=== PATIENT | female | born 1950 | race Caucasian/White ===

== ENCOUNTER 2018-01-24 13:15 | Observation (INO) ==
--- NOTE | 2018-01-24 14:24 | Emergency Department Note ---
Disposition Clinical Impression: Abdominal discomfort, Palpitations, Acute electrocardiogram changes Disposition: Admitted As Inpatient Condition: Good Time of Disposition: 16:48 General Adult HPI - General Chief complaint: ED Abdominal Pain Stated complaint: multiple complaints Time Seen by Provider: 01/24/18 13:53 Source: patient Mode of arrival: ambulatory Limitations: no limitations Nursing Notes Reviewed: Yes Vital Signs Reviewed: Yes - History of Present Illness HPI Narrative: Patient is a 67-year-old female that presents the emergency department with multiple complaints. She states that she has been having abdominal pain and burning in her urination. She also reports that when she has the burning with urination at times she will develop chest pain and feeling like her heart is racing. Patient also reports that the pain will be in her right flank area as well. Patient states that when she has the burning with urination she becomes flushed and feels very warm. Patient denies having anything like this before. She does state that she has a history of diverticulitis in the past. Pain Scale: 8 - Related Data Home Medications Medication Instructions Recorded Confirmed Gabapentin [Neurontin] 300 mg PO TID 01/24/18 01/24/18 Losartan Potassium [Cozaar] 100 mg PO DAILY 01/24/18 01/24/18 Omeprazole [PriLOSEC] 40 mg PO DAILY 01/24/18 01/24/18 Allergies Allergy/AdvReac Type Severity Reaction Status Date / Time No Known Allergies Allergy Verified 01/24/18 14:37 All systems ED: reviewed and negative except as stated. Constitutional: Reports: other (flushed) Cardiovascular: Reports: chest pain, palpitations Respiratory: Denies: dyspnea Gastrointestinal: Reports: abdominal pain. Denies: nausea, vomiting Genitourinary: Reports: urgency, dysuria, frequency. Denies: hematuria Musculoskeletal: Reports: back pain Past Medical History - Past Medical History Medical history: Reports: hypertension Psychiatric history: Reports: no psych history - Social History Smoking Status: Never smoker Smokeless Tobacco Status: No Alcohol use: Reports: none Drug use: Reports: none Physical Exam - General Limitations: no limitations General appearance: alert, in no apparent distress - Head Head exam: atraumatic, normocephalic - Eye Eye exam: Present: normal appearance, EOMI - Neck Neck exam: Present: normal inspection, full ROM, trachea midline - Respiratory Respiratory exam: Present: normal lung sounds bilaterally. Absent: respiratory distress, wheezes - Cardiovascular Cardiovascular exam: Present: regular rate, normal rhythm, normal heart sounds, +S1, +S2 - Abdominal Exam Abdominal exam: Present: soft, tenderness, normal bowel sounds Abdominal tenderness: Present: suprapubic - Back Exam Back exam: Present: normal inspection, full ROM, CVA tenderness (R) - Neurological Exam Neurological exam: Present: alert, oriented X3 - Psychiatric Psychiatric exam: Present: normal affect, normal mood - Skin Skin exam: Present: warm, dry, intact Course Vital Signs Temperature 97.3 F L 01/24/18 13:16 Pulse Rate 100 01/24/18 13:16 Respiratory Rate 18 01/24/18 13:16 Blood Pressure 161/89 01/24/18 13:16 O2 Sat by Pulse Oximetry 97 01/24/18 13:16 Temperature 97.3 F L 01/24/18 13:54 Pulse Rate 87 01/24/18 16:30 Respiratory Rate 16 01/24/18 17:03 Blood Pressure 156/84 01/24/18 17:03 O2 Sat by Pulse Oximetry 94 01/24/18 16:30 Oxygen Delivery Oxygen Delivery Room Air Medical Decision Making - MDM Narrative Medical decision making narrative: Due to the patient presented to the emergency department with abdominal pain with multiple other concerns including palpitations, flushing and what sounds like potential hot flashes we will obtain basic laboratory tests including a CBC , BMP, troponin chest x-ray and EKG as well as a urinalysis and a CT scan of the abdomen and pelvis. Patient EKG did show some T-wave inversions in the leads of V3, V4 and V5. This appears to be new from previous EKG. Patient's troponin was negative. Chest x-ray did not show any acute cardiopulmonary process. The remainder the patient's laboratory testing is unremarkable. However due to these new EKG changes that feel that is important that the patient be admitted to the hospital for further evaluation and management. The hospitalist Dr. Wooten has accepted the patient to their service. Patient will be admitted to the hospital this time for further evaluation and management. - Medical Records Medical records reviewed: Yes I reviewed the patient's medical records. - Lab Data Lab results reviewed: Yes I reviewed the patient's lab results. Result diagrams: 01/24/18 14:20 01/24/18 14:20 Lab Results 01/24/18 01/24/18 01/24/18 Range/Units 14:15 14:20 14:20 WBC 7.8 (4.3-11.1) K/mcL RBC 4.67 (3.82-4.97) M/mcL Hgb 14.1 (11.5-15.4) g/dL Hct 40.7 (35.3-44.9) % MCV 87.2 (83.0-100.0) fL MCH 30.2 (28.0-33.3) pg MCHC 34.6 (31.6-35.5) g/dL RDW 13.2 (11.5-14.5) % Plt Count 262 (140-400) K/mcL MPV 10.6 (9.4-12.4) fL Immature Gran % 0.4 (0-4) % Seg Neutrophils % 79.5 % Lymphocytes % 16.2 % Monocytes % 3.4 % Eosinophils % 0.0 % Basophils % 0.5 % Neutrophils # 6.2 (1.6-8.9) K/mcL Lymphocytes # 1.3 (0.6-4.6) K/mcL Monocytes # 0.3 (0.0-1.3) K/mcL Eosinophils # 0.0 (0.0-0.6) K/mcL Basophils # 0.0 (0.0-0.2) K/mcL Sodium 138 (136-145) mEq/L Potassium 3.7 (3.5-5.1) mEq/L Chloride 103 (98-107) mEq/L Carbon Dioxide 27 (23-29) mEq/L BUN 5 L (8-23) mg/dL Creatinine 0.80 (0.60-1.20) mg/dL Est GFR ( Amer) > 60 (> 60) Est GFR (Non-Af Amer) > 60 (> 60) BUN/Creatinine Ratio 6 (6-26) Glucose 120 H (70-105) mg/dL Calculated Osmolality 284 (280-300) Calcium 9.5 (8.6-10.3) mg/dL Total Bilirubin 0.5 (0.3-1.0) mg/dL Direct Bilirubin 0.1 (0.0-0.2) mg/dL Indirect Bilirubin 0.4 (0.0-1.2) mg/dL AST 20 (13-39) Units/L ALT 21 (7-52) Units/L Alkaline Phosphatase 77 (34-104) Units/L Troponin I < 0.03 (< 0.04) ng/mL Serum Total Protein 6.9 (6.4-8.9) g/dL Albumin 4.1 (3.5-5.7) g/dL Globulin 2.8 (2.4-3.5) g/dL Albumin/Globulin Ratio 1.5 (1.1-2.2) Amylase 24 L (29-103) Units/L Lipase 22 (11-82) Units/L Urine Color Yellow (Yellow) Urine Clarity Clear (Clear) Urine pH 7.0 (5.0-8.0) pH Units Ur Specific [place] 1.010 (1.010-1.025) Urine Protein Negative (Neg-Trace) mg/dL Urine Glucose (UA) Normal (Normal) mg/dL Urine Ketones Trace H (Negative) mg/dL Urine Blood Negative (Negative) Urine Nitrite Negative (Negative) Urine Bilirubin Negative (Negative) Urine Urobilinogen Normal (Normal) mg/dL Ur Leukocyte Esterase Negative (Negative) Ur Culture Indicated? NO (NO) - Radiology Data Radiology results reviewed: Yes I reviewed the patient's radiology results. Abdomen/Pelvis CT 01/24/18 14:05 IMPRESSION: No CT evidence of an acute intra-abdominal or intrapelvic process. Nonspecific hyperdense nodule inferior right kidney probably reflects a hemorrhagic cyst, requiring follow-up CT imaging in 6 months to ensure stability. D/ / Colton Rosas / Colton Rosas Interpreting Provider: Colton Rosas Chest X-Ray 01/24/18 15:18 IMPRESSION: No acute process. D/ / Artur Saucedo MD / Artur Saucedo MD Interpreting Provider: Artur Saucedo MD - EKG Data EKG #1 EKG attestation: Yes I reviewed and interpreted this EKG. EKG results narrative: EKG showed a sinus rhythm at a rate of 80 bpm, MO interval of 145, Q orthodox of 87, QTc of 423 with a normal axis. There are some T-wave inversions in leads V3, V4 and V5. This is compared to previous EKG on . These inversions were not present at that time. There is no STEMI noted on EKG. Attestation Statement - Attestation Attestation: I examined this patient and my medical decision-making was reviewed with the Resident Physician, Dr. Ge. I agree with the documented findings, disposition and treatment plan as described except to the extent set forth below. Patient is a 67-year-old white female with no prior cardiac history or evaluation who presents to the emergency department today with complaints of gradually worsening symptoms that she describes as a intra-abdominal burning sensation that spread up into her chest and is associated with the onset of "heart racing" symptoms and she becomes diaphoretic and warm. Patient states these episodes have been happening more frequently and with more intensity. Patient denies any chest pain or pressure sensation but does feel short of breath with these symptoms. She also has some complaints of pain with urination a similar burning sensation that she feels that radiates throughout her body. Patient denies any lightheadedness or syncope with these symptoms. I agree with patient's physical exam findings as documented. I personally evaluated the patient at bedside and agree with history and physical findings. Vital signs are stable and she is in no acute distress. Patient's EKG showed new T-wave inversion in the anterolateral leads compared to prior EKG. Patient was not having any chest pain pressure or heaviness in no burning abdominal or chest symptoms while in the ED. She was administered aspirin. Patient underwent lab evaluation urinalysis and CT abdomen and pelvis. Also chest x-ray was obtained. Patient with no abnormalities of her lab testing chest x-ray were CT. Concerned that patient may be having atypical angina symptoms and would benefit from admission and further cardiac evaluation. Patient agrees with plan and case was discussed with hospitalist who accepted patient for admission.
[2018-01-24 14:29] LABS: Bilirubin,Urine Negative (Negative); Blood,Urine Negative (Negative); Clarity,Urine Clear (Clear); Color,Urine Yellow (Yellow); Glucose,Urine (UA) Normal (Normal); Ketones,Urine Trace mg/dL (Negative); Leukocyte Esterase,Urine Negative (Negative); Nitrite,Urine Negative (Negative); Protein,Urine Negative (Neg-Trace); Urobilinogen,Urine Normal (Normal)
[2018-01-24] MEDS ORDERED: Aspirin 81 MG TAB.CHEW PO STA (14:29)
[2018-01-24 14:42] LABS: Basophils % 0.5 %; Hematocrit 40.7 % (35.3-44.9); Hemoglobin 14.1 g/dL (11.5-15.4); Immature Granulocytes % 0.4 % (0-4); Lymphocytes # 1.3 K/mcL (0.6-4.6); Lymphocytes % 16.2 %; Mean Corpuscular HGB Conc 34.6 g/dL (31.6-35.5); Mean Corpuscular Hemoglobin 30.2 pg (28.0-33.3); Mean Corpuscular Volume 87.2 fL (83.0-100.0); Mean Platelet Volume 10.6 fL (9.4-12.4); Monocytes # 0.3 K/mcL (0.0-1.3); Monocytes % 3.4 %; Neutrophils # 6.2 K/mcL (1.6-8.9); Platelet Count 262 K/mcL (140-400); Red Blood Count 4.67 M/mcL (3.82-4.97); Red Cell Distribution Width 13.2 % (11.5-14.5); Segmented Neutrophils % 79.5 %
[2018-01-24 15:04] LABS: Troponin I < 0.03 ng/mL (< 0.04)
[2018-01-24 15:07] LABS: Alanine Aminotransferase 21 Units/L (7-52); Albumin 4.1 g/dL (3.5-5.7); Albumin/Globulin Ratio 1.5 (1.1-2.2); Alkaline Phosphatase 77 Units/L (34-104); Amylase 24 Units/L (29-103); Aspartate Amino Transferase 20 Units/L (13-39); BUN/Creatinine Ratio 6 (6-26); Bilirubin,Direct 0.1 mg/dL (0.0-0.2); Bilirubin,Indirect 0.4 mg/dL (0.0-1.2); Bilirubin,Total 0.5 mg/dL (0.3-1.0); Blood Urea Nitrogen 5 mg/dL (8-23); Calcium 9.5 mg/dL (8.6-10.3); Carbon Dioxide 27 mEq/L (23-29); Chloride 103 mEq/L (98-107); Globulin 2.8 g/dL (2.4-3.5); Glucose 120 mg/dL (70-105); Lipase 22 Units/L (11-82); Osmolality,Calculated 284 (280-300); Potassium 3.7 mEq/L (3.5-5.1); Sodium 138 mEq/L (136-145); Total Protein 6.9 g/dL (6.4-8.9); eGFR For African Americans > 60 (> 60); eGFR For Non-African Americans > 60 (> 60)
[2018-01-24] MEDS ORDERED: Naloxone 0.4 MG/ML INJ IVP PRN (18:14)
--- NOTE | 2018-01-24 18:38 | Internal Med History&Physical ---
<VivianDayna Brandee - Last Filed: 01/24/18 19:49> Date of Encounter: 01/24/18 Time of Encounter: 18:28 Internal Medicine - H&P: HPI Chief complaint: Chest Pain Admitted From: Home Plans for Post Hospital Care: Home History of present illness: Ms. Ge is a 67 year old female that reported a burning sensation in her chest and epigastric region that radiated into her back. She also had some nausea, light headedness, and heart palpitations. She indicated that she noticed the burning symptoms 2-3 weeks ago and has been taking omeprazole that was provided by her pcp, however it has been ineffective. The CP is new in the past 3 days. Amylase is 24 and lipase is 22. She also indicated that she had a CT scan done last week, where she was told she had constipation through another provider. She indicated this was resolved. The patient stated she also has history of ulcers and diverticulitis and has had EGD and colonoscopy 7 years ago. She was dx with esophagitis and was treated medically. CXR was neg for acute dx. Ct of abd/pelvis today showed a hyper dense hemorrhagic cyst requiring follow up in the next 6 months. The patient indicated the pain was in the epigastric and mid-sternal region. She rated the pain 8/10. Trop was negative. EKG showed SR with T-wave inversion in leads, v3, v4,v5. This was apparently a change from her previous ekg. Cardiac risk factors include age, and hx of htn, she was never a smoker. Reports her pain is greatly improved at this time. She reports her last echo and stress test were 2-3 years ago. She thought they were normal. Past Med Surg Social Fam HX - Past Medical History Medical history: hypertension Psychiatric history: no psych history - Social History Smoking Status: Never smoker Smokeless Tobacco Status: No Alcohol use: none Drug use: none Internal Medicine - H&P: Meds Gabapentin [Neurontin] 300 mg PO TID 01/24/18 [History] Losartan Potassium [Cozaar] 100 mg PO DAILY 01/24/18 [History] Omeprazole [PriLOSEC] 40 mg PO DAILY 01/24/18 [History] 3 Allergy/AdvReac Type Severity Reaction Status Date / Time No Known Allergies Allergy Verified 01/24/18 14:37 All Systems PM: A 10-system review of systems was performed and is negative for pertinent findings except as documented above in the HPI. - Constitutional Constitutional: weakness, no chills, no fever(s), no night sweats - EENT Eyes: no change in vision, no discharge, no pain, no photophobia Ears: no ear discharge, no ear pain, no tinnitus Nose, mouth and throat: no dysphagia, no nasal discharge, no neck pain, no sore throat - Cardiovascular Cardiovascular ROS IM: chest pain, lightheadedness, palpitations, no diaphoresis , no dyspnea, no syncope - Respiratory Respiratory: no cough, no dyspnea, no wheezing, no excessive phlegm production - Gastrointestinal Gastrointestinal: abdominal pain (Abdominal and chest burning), nausea, no diarrhea, no hematemesis, no hematochezia, no melena, no vomiting - Genitourinary Genitourinary: no change in urinary stream, no dysuria, no flank pain, no hematuria - Musculoskeletal Musculoskeletal ROS IM: no numbness, no tingling - Integumentary Integumentary IM: no rash, no unusual bruising - Neurological Neurological ROS: no confusion, no convulsions, no focal weakness, no numbness, no tingling, no tremor(s) - Hematologic/Lymphatic Hematologic/Lymphatic: no easy bruising - Constitutional Vitals: Temp Pulse Resp BP Pulse Ox 97.3 F L 87 16 156/84 94 01/24/18 13:54 01/24/18 16:30 01/24/18 17:03 01/24/18 17:03 01/24/18 16:30 General appearance: Present: A&O X 3, no acute distress - Head Head exam: Present: atraumatic, normocephalic - Eye Eye exam: Present: PERRL, conjuntiva pink, sclera anicteric Pupils: Present: PERRL - Neck Neck exam general surgery: Present: supple, trachea midline. Absent: lymphadenopathy - Respiratory Respiratory exam: Present: CTAB. Absent: accessory muscle use, rales, rhonchi, wheezes - Cardiovascular Cardiovascular exam: Present: RRR, +S1, +S2. Absent: diastolic murmur, gallop, rubs, systolic murmur - GI/Abdominal GI/Abdominal exam: Present: hyperactive bowel sounds, soft, no peritoneal signs. Absent: distended - Extremities Exam Extremities exam: Present: warm, radial pulses palpable and symmetrical. Absent : calf tenderness, cyanotic, pedal edema - Neurological Exam Neurological exam: Present: alert, CN II-XII intact, oriented X3, no focal deficits. Absent: pronater drift, facial droop, speech deficit - Skin Skin exam: Present: dry, intact Internal Med - H&P Results - Labs CBC & Chem 7: 01/24/18 14:20 01/24/18 14:20 - Assessment and plan (1) Atypical chest pain Current Visit: Yes Status: Acute Assessment and plan: Serial cardiac troponins, cardiac monitoring, morphine iv prn, echo and stress test scheduled for the am. Started on atorvastatin. (2) Abdominal discomfort Current Visit: Yes Status: Acute Assessment and plan: Abdominal ct showed a hemorrhagic cysts that needs follow up in 6 months. Patient states she has had gastric ulcers and diverticulitis in the past. Currently on omeprazole at home. Protonix iv started daily. Will add a GI consult for am. - Time Spent With Patient Total time spent is greater than 50% in coordination of care (as documented) at patient's floor/unit and/or counseling patient: <Tima Moy P - Last Filed: 01/25/18 04:38> Date of Encounter: 01/24/18 Internal Medicine - H&P: HPI History of present illness: Ms. Ge is a 67 year old female All Systems PM: A 10-system review of systems was performed and is negative for pertinent findings except as documented above in the HPI. - Constitutional Vitals: Temp Pulse Resp BP Pulse Ox 98.0 F 72 15 134/72 98 01/25/18 01:03 01/25/18 01:03 01/25/18 01:03 01/25/18 01:03 01/25/18 01:03 Internal Med - H&P Results - Labs CBC & Chem 7: 01/24/18 14:20 01/24/18 14:20 Labs: Cardiac Enzymes 01/24/18 Range/Units 22:00 Troponin I < 0.03 (< 0.04) ng/mL - Attending Attestation I saw and evaluated the patient, and performed my own physical examination on . I discussed the case with the BOILER HOUSE SUPERVISOR, and reviewed the BOILER HOUSE SUPERVISOR's note. I agree with findings and plan as documented in the BOILER HOUSE SUPERVISOR's note except noted here. Briefly, patient admitted for chest/abdominal pain. She states the pain is a "burning" and points to her epigastrium. She has had GI issues multiple times in past, including multiple scopes with only significant finding to be mild esophagitis. She states that she feels constipated. We will do full ACS ruleout. We will start PPI and get GI consult in AM. Patient having mild burning sensation at this time, but in no distress. Abdominal exam significant for mild TTP in LLQ and RLQ. - Time Spent With Patient Total time spent is greater than 50% in coordination of care (as documented) at patient's floor/unit and/or counseling patient:
[2018-01-24] MEDS ORDERED: GI Cocktail 40 ML EACH PO ONE (20:07)
[2018-01-24] MEDS ORDERED: Pantoprazole 40 MG VIAL IVP ONE (20:39)
[2018-01-24] MEDS ORDERED: Bisacodyl 10 MG RECTAL SUPPOSITORY RC STA (20:48)
[2018-01-24] MEDS ORDERED: Acetaminophen 325 MG TABLET PO PRN (20:51)
[2018-01-24] MEDS: Pantoprazole 40 MG VIAL IVP SCH (21:23)
[2018-01-24] MEDS: Gabapentin 300 MG CAPSULE PO SCH (21:36)
[2018-01-25] MEDS ORDERED: Famotidine 20 MG TABLET PO STA (01:00)
[2018-01-25] MEDS: Sucralfate 1 GM TABLET PO SCH ×5 (01:08→20:49)
[2018-01-25 05:12] LABS: Basophils % 0.5 %; Eosinophils % 0.5 %; Hematocrit 38.2 % (35.3-44.9); Hemoglobin 13.4 g/dL (11.5-15.4); Immature Granulocytes % 0.4 % (0-4); Lymphocytes # 1.4 K/mcL (0.6-4.6); Lymphocytes % 17.8 %; Mean Corpuscular HGB Conc 35.1 g/dL (31.6-35.5); Mean Corpuscular Hemoglobin 30.2 pg (28.0-33.3); Mean Corpuscular Volume 86.2 fL (83.0-100.0); Mean Platelet Volume 10.6 fL (9.4-12.4); Monocytes # 0.6 K/mcL (0.0-1.3); Monocytes % 7.5 %; Neutrophils # 5.9 K/mcL (1.6-8.9); Platelet Count 243 K/mcL (140-400); Red Blood Count 4.43 M/mcL (3.82-4.97); Red Cell Distribution Width 13.1 % (11.5-14.5); Segmented Neutrophils % 73.3 %
[2018-01-25 05:22] LABS: Troponin I < 0.03 ng/mL (< 0.04)
[2018-01-25 05:26] LABS: BUN/Creatinine Ratio 7 (6-26); Blood Urea Nitrogen 6 mg/dL (8-23); Carbon Dioxide 27 mEq/L (23-29); Chloride 102 mEq/L (98-107); Chol/HDL Ratio 3.1 (0-4.9); Cholesterol 129 mg/dL (< 200); Glucose 116 mg/dL (70-105); HDL Cholesterol 42 mg/dL (40-59); LDL Cholesterol,Calculated 64 mg/dL (0-99); Osmolality,Calculated 285 (280-300); Potassium 3.9 mEq/L (3.5-5.1); Sodium 138 mEq/L (136-145); Triglycerides 113 mg/dL (< 150); eGFR For African Americans > 60 (> 60); eGFR For Non-African Americans > 60 (> 60)
[2018-01-25] MEDS ORDERED: Regadenoson 0.4 MG/5 ML SYRINGE IVP ONE (05:38)
[2018-01-25] MEDS: Gabapentin 300 MG CAPSULE PO SCH ×3 (11:26→20:49)
[2018-01-25] MEDS: Pantoprazole 40 MG VIAL IVP SCH ×2 (11:26→16:20)
[2018-01-25] MEDS: Aspirin 81 MG TAB.CHEW PO SCH (11:56)
--- NOTE | 2018-01-25 12:40 | Gastroenterology Consult Note ---
<Marissa Stuatr - Last Filed: 01/25/18 12:34> Date of Encounter: 01/25/18 Time of Encounter: 12:20 - Assessment and plan (1) Atypical chest pain Current Visit: Yes Status: Acute Assessment and plan: Pt has epigastric and chest pain. She has Gerd. recently started on omeprazole with no relief. plan for EGD today to r/o esophagitis, gastritis, duodenitis, PUD, MW tear, or AVM. Keep patient NPO for now. Patient educated regarding lifestyle modifications including: (1) avoidance of foods that may precipitate reflux (eg, coffee, alcohol, chocolate, fatty foods) . (2) avoidance of acidic foods that may precipitate heartburn (eg, citrus, carbonated drinks, spicy foods). (3) adoption of behaviors that may reduce esophageal acid exposure (see weight loss, smoking cessation, raising the head of the bed, and avoiding recumbency for 2-3 hours after meals). - Time Spent With Patient Total time spent is greater than 50% in coordination of care (as documented) at patient's floor/unit and/or counseling patient: GI History of Present Illness - Data of Consult Patient: new to practice Consult date: 01/25/18 Requesting Physician: Krysten Wooten - Consult Narrative Reason for consult: epigastric/chest pain History of present illness: Ms. Ge is a 67 year old female with a history of HTN. She presents with a burning sensation in her chest and epigastric region that radiated into her back and around her right shoulder. She also had some nausea, light headedness, and heart palpitations. She indicated that she noticed the burning symptoms 2-3 weeks ago and has been taking omeprazole that was provided by her pcp, with minimal relief. She had a cT scan done last week, and reports it showed constipation, but states is now resolved. The patient stated she also has history of ulcers and diverticulitis and has had EGD and colonoscopy 7 years ago. She was dx with esophagitis and was treated medically. CXR was neg for acute dx. Ct of abd/pelvis today showed a hyper dense hemorrhagic cyst requiring follow up in the next 6 month, no acute process. Trop was negative. EKG showed SR with T-wave inversion in leads, v3, v4,v5. This was apparently a change from her previous ekg. Cardiac risk factors include age, and hx of htn, she was never a smoker. Labs were basically normal. NSAIDS: asa 81mg , ibuprofen only on occasion Procedures: 2011 [facility] EGD/colonoscopy gastritis, diverticulitis ]bloodthinners: denies Past Med Surg Social Fam HX - Past Medical History Medical history: hypertension Psychiatric history: no psych history - Social History Smoking Status: Never smoker Smokeless Tobacco Status: No Alcohol use: none Drug use: none Review of Systems: GI: as per [place] GENERAL: denies fever or chills EYES: denies yellow discoloration ENT: denies pain with swallowing or difficulty swallowing CARDIO: dsee HPI RESP: No Shortness of breath with exertion : denies change in color of urine NEURO: admits to weakness HEME: Denies any bruising MS: right shoulder pain and tenderness DERM: denies rash or itching PSYCH: Denies history of anxiety or depression - Constitutional Vitals: Temp Pulse Resp BP Pulse Ox 98.4 F 71 18 149/86 95 01/25/18 11:33 01/25/18 11:33 01/25/18 11:33 01/25/18 11:33 01/25/18 11:32 Exam: CONSTITUTIONAL:~alert, no acute distress.~HEAD:~normocephalic.~EYES:~no jaundice.~NECK:~no obvious swelling.~HEART:~regular rate and rhythm, no murmurs. ~LUNGS:~bilateral good air entry.~ABDOMEN:~non distended, soft, tender epigastric area, no masses palpable, no organomegaly.~RECTAL EXAM:~Deferred.~ EXTREMITIES:~no clubbing, cyanosis or edema.~SKIN:~no stigmata of chronic liver disease.~NEUROLOGIC:~no obvious focal defect.~~~~ Results - Labs CBC & Chem 7: 01/25/18 04:36 01/25/18 04:36 Labs: Last Result Calcium 9.0 mg/dL (8.6-10.3) 01/25/18 04:36 Troponin I < 0.03 ng/mL (< 0.04) 01/25/18 11:37 Triglycerides 113 mg/dL (< 150) 01/25/18 04:36 Entire Visit Hgb 13.4 g/dL (11.5-15.4) 01/25/18 04:36 Hct 38.2 % (35.3-44.9) 01/25/18 04:36 Total Bilirubin 0.5 mg/dL (0.3-1.0) 01/24/18 14:20 AST 20 Units/L (13-39) 01/24/18 14:20 ALT 21 Units/L (7-52) 01/24/18 14:20 Amylase 24 Units/L (29-103) L 01/24/18 14:20 Lipase 22 Units/L (11-82) 01/24/18 14:20 Consult Discharge Plan - Plan Additional Instructions: Follow-up with Dr. Davis in clinic Referrals: Lindsey Cordero CNP [Primary Care Provider] - (Please follow up with PCP, Clinic currently closed, call to set up appointment. ) Eryn Davis MD [Partnered Physician] - (Web request sent, if not contacted Please make appointment sunday, clinic currently closed for weekend. ) Prescriptions: Polyethylene Glycol 3350 [MiraLAX] 17 gm PO DAILY PRN #[id number] [email or web address] PRN Reason: Constipation <Eryn Davis - Last Filed: 01/26/18 12:30> Date of Encounter: 01/25/18 Time of Encounter: 12:00 - Time Spent With Patient Total time spent is greater than 50% in coordination of care (as documented) at patient's floor/unit and/or counseling patient: GI History of Present Illness - Data of Consult Requesting Physician: Krysten Wooten - Consult Narrative History of present illness: Ms. Ge is a 67 year old female - Constitutional Vitals: Temp Pulse Resp BP Pulse Ox 98.4 F 72 16 131/84 98 01/26/18 11:13 01/26/18 11:13 01/26/18 11:13 01/26/18 11:13 01/26/18 11:13 Results - Labs CBC & Chem 7: 01/26/18 05:39 01/26/18 05:39 Labs: Last Result Calcium 9.1 mg/dL (8.6-10.3) 01/26/18 05:39 Troponin I < 0.03 ng/mL (< 0.04) 01/25/18 11:37 Triglycerides 113 mg/dL (< 150) 01/25/18 04:36 Entire Visit Hgb 13.2 g/dL (11.5-15.4) 01/26/18 05:39 Hct 38.7 % (35.3-44.9) 01/26/18 05:39 Total Bilirubin 0.5 mg/dL (0.3-1.0) 01/24/18 14:20 AST 20 Units/L (13-39) 01/24/18 14:20 ALT 21 Units/L (7-52) 01/24/18 14:20 Amylase 24 Units/L (29-103) L 01/24/18 14:20 Lipase 22 Units/L (11-82) 01/24/18 14:20 - Impressions Impressions Echocardiogram 01/25/18 18:20 Impressions: LVEF 60-65%. Normal LV chamber size and function. Mild concentric left ventricular hypertrophy. Mild left ventricular diastolic dysfunction. Normal right ventricular structure and function. No evidence of pulmonary hypertension. No significant valvular dysfunction. Left Ventricular Wall Motion: Rest Echo Findings All wall segments showed normal motion. Findings: Study Quality * Technically adequate exam. ECG Findings * Normal sinus rhythm. Left Ventricle * LVEF 60-65%. * Normal LV chamber size and function. * Mild concentric left ventricular hypertrophy. * Mild left ventricular diastolic dysfunction. Right Ventricle * Normal right ventricular structure and function. Left Atrium * Mildly dilated left atrium. Right Atrium * Normal right atrial size. Aortic Valve * Trileaflet aortic valve with normal function. * No aortic regurgitation. * No aortic stenosis. Mitral Valve * Normal mitral valve structure and function. * No mitral stenosis. * Trace mitral regurgitation. Tricuspid Valve * Normal tricuspid valve structure and function. * Trace tricuspid regurgitation. * No evidence of pulmonary hypertension. Pulmonic Valve * Normal pulmonic valve structure and function. * Trace pulmonic regurgitation. Aorta * Normally sized aortic root. Pericardium * The pericardium appears normal. IVC * Normal IVC dimensions and inspiratory collapse. Pulmonary Artery * Normal visualized portions of the main pulmonary artery. - Attending Attestation I have personally performed a face to face evaluation on this patient. I have reviewed and agree with the care plan. History and Exam by me shows: Pt seen , complaining of abd pain. CT negative. Rec:EGD to r/o PUD
[2018-01-25] MEDS ORDERED: *HR* Midazolam HCl 5 MG/5 ML VIAL IVP ONE (12:55)
[2018-01-25] MEDS ORDERED: *HR* FentaNYL (PF) 100 MCG/2 ML VIAL ONE (12:55)
[2018-01-25] MEDS ORDERED: *HR* Midazolam HCl 2 MG/2 ML VIAL IVP ONE (12:58)
[2018-01-25] MEDS ORDERED: *HR* FentaNYL (PF) 100 MCG/2 ML VIAL IVP ONE (12:58)
[2018-01-25] MEDS ORDERED: Tetracaine/Benzocaine/Butamben 200MG/SPRAY (100SPY/BOT) MM ONE (12:58)
[2018-01-25] MEDS ORDERED: Simethicone 40 MG/0.6 ML MLS IR ONE (12:58)
--- NOTE | 2018-01-25 12:59 | Pre-Sedation Evaluation ---
Pre-sedation evaluation - Pre-sedation checklist Date of procedure: 01/25/18 Recent Vitals: Last Vital Signs Temp 98.4 F 01/25/18 12:52 Pulse 71 01/25/18 12:52 Resp 18 01/25/18 12:52 BP 149/86 01/25/18 12:52 Pulse Ox 99 01/25/18 12:52 ASA Classification *see protocol: CLASS III-Severe systemic disease Plan of Care: Pt appropriate candidate for procedure/moderate/conscious sedation , Risks/benefits of procedure/sedation discussed w/ patient/family
--- NOTE | 2018-01-25 15:51 | Internal Med Progress Note ---
Date of Encounter: 01/25/18 Time of Encounter: 15:47 - Assessment and plan (1) Chest pain Current Visit: Yes Status: Acute Assessment and plan: 67-year-old female presented with acute onset of burning chest pain. She underwent stress nuclear test and echocardiogram today which are normal per report. She then underwent a EGD study by GI. The report currently still pending. - Continue PPI, considering discharge patient tomorrow if no further workup is needed. Qualifiers: Ischemic chest pain type: unspecified angina pectoris type Qualified Code(s ): I25.9 - Chronic ischemic heart disease, unspecified (2) Abdominal discomfort Current Visit: Yes Status: Acute Assessment and plan: CT abdomen and pelvis no acute abnormalities, continue monitoring. - Time Spent With Patient Total time spent is greater than 50% in coordination of care (as documented) at patient's floor/unit and/or counseling patient: Greater than 35 minutes - Subjective Interval history: Patient seen and examined in room, she is still having a burning sensation in chest that has improved after received IV PPI. - Constitutional Vitals: Temp Pulse Resp BP Pulse Ox 98.1 F 76 16 148/80 97 01/25/18 15:22 01/25/18 15:22 01/25/18 15:22 01/25/18 15:22 01/25/18 15:22 General appearance: Present: A&O X 3, no acute distress Exam: PHYSICAL EXAMINATION: GENERAL APPEARANCE: The patient is alert, oriented and in no acute distress. HEENT: Head is normocephalic. The sinuses are nontender. Pupils are equal and reactive. The nares are patent. Oropharynx clear without lesions. NECK: Supple without lymphadenopathy. HEART: Regular rate and rhythm. LUNGS: No crackles or wheezes are heard. ABDOMEN: Soft, nontender, nondistended with good bowel sounds heard. Inguinal area is normal. EXTREMITIES: Without cyanosis, clubbing or edema. NEUROLOGICAL: Gross nonfocal. SKIN: Warm and dry without any rash. Internal Medicine: Result - Labs CBC & Chem 7: 01/25/18 04:36 01/25/18 04:36 Labs: Short CBC 01/25/18 Range/Units 04:36 WBC 8.0 (4.3-11.1) K/mcL Hgb 13.4 (11.5-15.4) g/dL Hct 38.2 (35.3-44.9) % Plt Count 243 (140-400) K/mcL Neutrophils # 5.9 (1.6-8.9) K/mcL BMP 01/25/18 04:36 Sodium 138 Potassium 3.9 Chloride 102 Carbon Dioxide 27 BUN 6 L Creatinine 0.81 Glucose 116 H Calcium 9.0 Cardiac Enzymes 01/24/18 01/25/18 01/25/18 Range/Units 22:00 04:36 11:37 Troponin I < 0.03 < 0.03 < 0.03 (< 0.04) ng/mL Consult Discharge Plan - Plan Referrals: Lindsey Cordero, [facility] [Primary Care Provider] -
[2018-01-25] MEDS ORDERED: Pantoprazole 40 MG VIAL IVP SCH (18:45)
[2018-01-25] MEDS ORDERED: Mag Hydrox/Al Hydrox/Simeth 30 ML UDC PO PRN (22:02)
--- NOTE | 2018-01-25 23:22 | Electrocardiograph Report ---
[place] [id number] Test Date: 2018-01-24 Pat Name: Carmen Ge Department: 103 Room: 3A Gender: F Database Programmer: TMR : 1950 Requested By: Tomer Ge Order Number: [id number] Reading MD: Misty Chaudhary Measurements Intervals [place] Rate: 80 P: 42 ND: 145 QRS: 17 QRSD: 87 T: 65 QT: 387 QTc: 423 Interpretive Statements SINUS RHYTHM ST DEVIATION AND MODERATE T-WAVE ABNORMALITY, CONSIDER ANTERIOR ISCHEMIA [-0.1+ mV T WAVE IN V3/V4] Electronically Signed On 01-25-2018 23:21:13 EDT by Misty Chaudhary
--- NOTE | 2018-01-25 23:24 | Electrocardiograph Report ---
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
[2018-01-26 06:02] LABS: Basophils # 0.1 K/mcL (0.0-0.2); Basophils % 0.8 %; Eosinophils # 0.1 K/mcL (0.0-0.6); Eosinophils % 1.2 %; Hematocrit 38.7 % (35.3-44.9); Hemoglobin 13.2 g/dL (11.5-15.4); Immature Granulocytes % 0.3 % (0-4); Lymphocytes # 1.7 K/mcL (0.6-4.6); Lymphocytes % 25.5 %; Mean Corpuscular HGB Conc 34.1 g/dL (31.6-35.5); Mean Corpuscular Hemoglobin 29.5 pg (28.0-33.3); Mean Corpuscular Volume 86.6 fL (83.0-100.0); Mean Platelet Volume 10.4 fL (9.4-12.4); Monocytes # 0.6 K/mcL (0.0-1.3); Monocytes % 8.4 %; Neutrophils # 4.2 K/mcL (1.6-8.9); Platelet Count 230 K/mcL (140-400); Red Blood Count 4.47 M/mcL (3.82-4.97); Red Cell Distribution Width 13.3 % (11.5-14.5); Segmented Neutrophils % 63.8 %
[2018-01-26 06:21] LABS: BUN/Creatinine Ratio 12 (6-26); Blood Urea Nitrogen 9 mg/dL (8-23); Calcium 9.1 mg/dL (8.6-10.3); Carbon Dioxide 27 mEq/L (23-29); Chloride 105 mEq/L (98-107); Glucose 102 mg/dL (70-105); Osmolality,Calculated 283 (280-300); Potassium 3.7 mEq/L (3.5-5.1); Sodium 137 mEq/L (136-145); eGFR For African Americans > 60 (> 60); eGFR For Non-African Americans > 60 (> 60)
[2018-01-26] MEDS: Pantoprazole 40 MG VIAL IVP SCH (08:10)
[2018-01-26] MEDS: Aspirin 81 MG TAB.CHEW PO SCH (08:10)
[2018-01-26] MEDS: Sucralfate 1 GM TABLET PO SCH ×2 (08:10→10:55)
[2018-01-26] MEDS: Gabapentin 300 MG CAPSULE PO SCH (08:10)
--- NOTE | 2018-01-26 10:52 | Discharge Summary ---
- NOTES TO OUTPATIENT PROVIDER Notes to Outpatient Provider: Clinic follow up with GI Orders not resulted at time of discharge: Pending orders 01/25/18 05:19 NM colleen perf SPECT multi [NM] Routine 01/25/18 06:00 EKG [ECG 12 lead ECG] [ECG] AM 0600 01/25/18 13:34 Surgical Pathology [PTH] Routine Date of Encounter: 01/26/18 Time of Encounter: 10:15 - Discharge Diagnosis (1) Abdominal discomfort Priority: Primary Status: Acute Assessment and Plan: Patient underwent CT abdomen and pelvis without contrast on 01/25/2080 that showed no intra-abdominal or intraoperative pelvic process. Nonspecific hyperdense nodule in the inferior right kidney was noted suggestive of hemorrhagic cyst. CT scan imaging in 6 months was recommended. As part of workup for atypical angina, she underwent a nuclear stress test, echo and EKG. Due to stress test showed her EF more than 70%, small, moderate intensity fixed mid anterior/anteroseptal defect with normal wall motion possibly due to artifact. Perfusion imaging was negative for evidence ischemia or infarct. Pharmacological stress EKG was nondiagnostic for ischemia due to baseline ST and T wave changes. Echo: Impressions: LVEF 60-65%. Normal LV chamber size and function. Mild concentric left ventricular hypertrophy. Mild left ventricular diastolic dysfunction. Normal right ventricular structure and function. No evidence of pulmonary hypertension. No significant valvular dysfunction. As such, no clear evidence of cardiac or GI pathology was noted. She was seen by GI who performed a upper GI endoscopy. Results are pending. (2) Chest pain Priority: Primary Status: Acute Assessment and Plan: Atypical symptoms of unclear of unclear etiology. Qualifiers: Ischemic chest pain type: unspecified angina pectoris type Qualified Code(s ): I25.9 - Chronic ischemic heart disease, unspecified (3) Hypertension Priority: Secondary Status: Chronic Qualifiers: Qualified Code(s): I10 - Essential (primary) hypertension Hospital course: Joo is a 67 year old female with prior medical history of hypertension who presented to the emergency room on 8 01/24/2018 with burning sensation in her chest and epigastric area that radiated to her back. CT abdomen and pelvis was performed emergency room with results as noted above. This was benign. Amylase was 24 and lipase was 22. She also had some nausea, lightheadedness and heart palpitations. Symptoms started 2-3 weeks ago but were not completely elevated with omeprazole that she had been prescribed by her primary care physician. She was told she has constipation. Patient also has a history of ulcers and diverticulitis. GI was consulted for further recommendations. She apparently had a colonoscopy 7 years ago which was benign. As part of workup for her symptoms, she underwent an upper GI endoscopy. Results of this are pending but she is clinically stable. In addition, considering her age and risk factors such as obesity and hypertension, workup for atypical angina was performed. She underwent a nuclear pharmacological stress test which was negative for any ischemia. In addition, her echocardiogram was normal. As such, although the etiology of her symptoms is unclear she is clinically stable for discharge home and will follow up with GI in clinic.. - Time Spent with Patient Total time spent providing and/or coordinating discharge services: - Discharge Medications Prescriptions: Polyethylene Glycol 3350 [MiraLAX] 17 gm PO DAILY PRN #30 powd.pack PRN Reason: Constipation Home Medications: Gabapentin [Neurontin] 300 mg PO TID 01/24/18 [History] Losartan Potassium [Cozaar] 100 mg PO DAILY 01/24/18 [History] Omeprazole [PriLOSEC] 40 mg PO DAILY 01/24/18 [History] Polyethylene Glycol 3350 [MiraLAX] 17 gm PO DAILY PRN #30 powd.pack 01/26/18 [Rx ] Allergies/Adverse Reactions: 3 Allergy/AdvReac Type Severity Reaction Status Date / Time No Known Allergies Allergy Verified 01/24/18 14:37 Date of admission: 01/24/18 16:42 Primary care physician: Lindsey Cordero, Consults: 01/24/18 17:51 Consult to Nutrition [CONS] Stat Comment: Consulting Provider: NUTRITION Reason for Dietary Consult: MST Score 01/24/18 19:26 Consult to Gastroenterology [CONS] Routine Consulting Provider: Gastroenterology Diana Reason for Consult: epigastric burning, hx ulcer, will r/o cardiac disease Time Notified: 19:27 Call Completed: No Discharging clinician: Edouard Zavala Anticipated date of discharge: 01/26/18 - Constitutional Vitals: Temp Pulse Resp BP Pulse Ox 97.8 F 75 15 142/90 97 01/26/18 06:55 01/26/18 06:55 01/26/18 06:55 01/26/18 06:55 01/26/18 06:55 General appearance: Present: A&O X 3, no acute distress Exam: Physical exam Gen: Comfortable, laying in bed, in no visible distress HEENT: Normocephalic, atraumatic. No conjunctival icterus. Moist oral mucosa. Neck: Supple Lungs: Clear to auscultation, no foreign sounds Heart: Normal S1-S2, no murmurs rubs or gallops Abdomen: Normoactive bowel sounds, no guarding rigidity or tenderness Extremities: No edema clubbing or cyanosis Neuro: Alert oriented 3, no focal deficits Skin: No skin lesions - Patient Status Disposition: Home, Self-Care Condition: Good Functional capacity at discharge: independent ambulation Overall status at discharge: patient is back to baseline - Discharge Instructions Follow Up With: Lindsey Cordero CNP [Primary Care Provider] - Eryn Davis MD [Partnered Physician] - Additional Instructions: Follow-up with Dr. Davis in clinic - Diet and Activity Activity: resume usual activities as tolerated Diet: advance to your usual diet
[2018-01-26 11:17] VITALS: BP 131/84
== END 2018-01-26 13:39 | disposition home or self-care (01) ==
LOC: EMEROO 13:15 → 3ANU 13:15
PROVIDERS: ADMIT General Practice; ATTEND General Practice
PROC: ENDOEBX (2018-01-25 09:50)